=== PATIENT | female | born 2000 | race Caucasian/White ===

== ENCOUNTER 2019-02-28 11:05 | Emergency (ER) | payer OTHER ==
[~2019-02-28] VITALS: Ht 157.5 cm; Wt 62.1 kg
[2019-02-28 11:26] VITALS: Ht 157.5 cm; Wt 62.1 kg
[2019-02-28 14:09] VITALS: BP 115/68
== END 2019-02-28 14:09 | disposition home or self-care (01) ==
LOC: ED 11:05
DX: S39.012A Strain of muscle, fascia and tendon of lower back, initial encounter (principal); R11.10 Vomiting, unspecified; V48.5XXA Car driver injured in noncollision transport accident in traffic accident, initial encounter; Y93.I9 Activity, other involving external motion; Y92.488 Other paved roadways as the place of occurrence of the external cause; Y99.8 Other external cause status